=== PATIENT | female | born 1985 | race Caucasian/White ===

== ENCOUNTER 2016-08-05 16:42 | Emergency (ER) | payer OTHER ==
[2016-08-05] MEDS ORDERED: LISINOPRIL 10 MG TAB PO ONE (17:55)
== END 2016-08-05 19:29 | disposition home or self-care (01) ==
LOC: ER 16:42
DX: Z76.0 Encounter for issue of repeat prescription (principal); I10 Essential (primary) hypertension
CPT/HCPCS: 36415; 71020; 80053; 81001; 84439; 84443; 84703; 85025